=== PATIENT | male | born 1960 | race Caucasian/White ===

== ENCOUNTER → 2020-03-19 | Outpatient (CLI) | payer OTHER | LOC: SJCVCIMAG 10:05 | PROVIDERS: ATTEND Nuclear Medicine Nuclear Cardiology | DX: M79.604 Pain in right leg (principal); M79.89 Other specified soft tissue disorders; I87.2 Venous insufficiency (chronic) (peripheral); Z87.891 Personal history of nicotine dependence ==

== ENCOUNTER → 2020-03-20 | Outpatient (CLI) | payer OTHER | LOC: SJCVCIMAG 08:57 | PROVIDERS: ATTEND Nuclear Medicine Nuclear Cardiology | DX: I73.9 Peripheral vascular disease, unspecified (principal); M79.604 Pain in right leg; M79.605 Pain in left leg; R19.00 Intra-abdominal and pelvic swelling, mass and lump, unspecified site; M79.89 Other specified soft tissue disorders ==

== ENCOUNTER → 2020-03-28 | Outpatient (CLI) | payer OTHER | LOC: SJCVCIMAG 07:20 | PROVIDERS: ATTEND Nuclear Medicine Nuclear Cardiology | DX: I45.10 Unspecified right bundle-branch block (principal); R00.0 Tachycardia, unspecified; R94.31 Abnormal electrocardiogram [ECG] [EKG]; E78.5 Hyperlipidemia, unspecified; Z87.891 Personal history of nicotine dependence ==